=== PATIENT | male | born 1980 | race Caucasian/White ===

== ENCOUNTER 2017-06-15 09:56 | Emergency (ER) | payer BC ==
[~2017-06-15] VITALS: Ht 177.8 cm; Wt 78.5 kg
[~2017-06-15 09:56] MED LIST: HYDACE5 PO; NAPR550 PO
[2017-06-15] MEDS ORDERED: CEPH500 PO (10:25)
== END 2017-06-15 10:53 | disposition home or self-care (01) ==
LOC: ER 09:56
DX: L02.415 Cutaneous abscess of right lower limb (principal); F17.210 Nicotine dependence, cigarettes, uncomplicated
CPT/HCPCS: 99282

== ENCOUNTER 2017-06-20 14:40 | Emergency (ER) | payer BC ==
[~2017-06-20] VITALS: Ht 175.3 cm; Wt 77.1 kg
[~2017-06-20 14:40] MED LIST changes: +CEPH500 PO
[2017-06-20] MEDS ORDERED: Bactrim Ds Tab1 EACH PO (15:53)
== END 2017-06-20 16:01 | disposition home or self-care (01) ==
LOC: ER 14:40
DX: L02.415 Cutaneous abscess of right lower limb (principal); Z79.899 Other long term (current) drug therapy; Z79.2 Long term (current) use of antibiotics; F17.210 Nicotine dependence, cigarettes, uncomplicated
CPT/HCPCS: 99282

== ENCOUNTER 2019-03-22 11:25 | Emergency (ER) | payer OTHER ==
[~2019-03-22] VITALS: Ht 175.3 cm; Wt 72.6 kg
[~2019-03-22 11:25] MED LIST changes: +Bactrim Ds Tab1 EACH PO
[2019-03-22] MEDS ORDERED: PRED20 PO (12:30)
== END 2019-03-22 12:50 | disposition home or self-care (01) ==
LOC: ER 11:25
DX: M54.31 Sciatica, right side (principal); F17.210 Nicotine dependence, cigarettes, uncomplicated
CPT/HCPCS: 99282

== ENCOUNTER → 2019-04-10 | Outpatient (CLI) | payer OTHER ==
[~2019-04-10] MED LIST changes: +CLON.5; +GABA800; +PRED20 PO; +TRAM50
== END | disposition home or self-care (01) ==
LOC: LAB EV 12:56 → LAB SHORT 12:56
DX: L72.3 Sebaceous cyst (principal)
CPT/HCPCS: 87070; 87075; 87077; 87147; 87186; 87205

== ENCOUNTER 2019-04-15 13:11 | Emergency (ER) | payer OTHER ==
[~2019-04-15] VITALS: Ht 175.3 cm; Wt 70.8 kg
[~2019-04-15 13:11] MED LIST changes: -CLON.5; -GABA800; -TRAM50
[2019-04-15 13:47] LABS: BASOPHILS ABSOLUTE AUTO 0.03 K/mm3 (0.00-0.23); BASOPHILS PERCENT AUTO 0 % (0-2); EOSINOPHILS ABSOLUTE AUTO 0.17 K/mm3 (0.00-0.68); EOSINOPHILS PERCENT AUTO 2 % (0-6); Hematocrit 32.7 % (37.0-53.0); Hemoglobin 9.9 g/dL (13.5-17.5); IMMATURE GRAN ABSOLUTE AUTO 0.05 K/mm3 (0.00-0.10); IMMATURE GRAN PERCENT AUTO 1 % (0-1); LYMPHOCYTES ABSOLUTE AUTO 1.51 K/mm3 (0.84-5.20); LYMPHOCYTES PERCENT AUTO 15 % (21-46); MONOCYTES ABSOLUTE AUTO 0.52 K/mm3 (0.16-1.47); MONOCYTES PERCENT AUTO 5 % (4-13); Mean Corpuscular HGB 24.8 pg (26.0-34.0); Mean Corpuscular HGB Conc 30.3 g/dL (31.5-36.5); Mean Corpuscular Volume 82 fL (80-100); Mean Platelet Volume 9.4 fL (9.1-12.4); NEUTROPHILS ABSOLUTE AUTO 8.08 K/mm3 (1.96-9.15); NEUTROPHILS PERCENT AUTO 78 % (41-73); Platelet Count 430 K/mm3 (150-400); RDW Coefficient Variation 16.3 % (11.7-14.2); Red Blood Cell Count 3.99 M/mm3 (4.30-5.90); White Blood Cell Count 10.36 K/mm3 (4.00-11.30)
[2019-04-15 14:08] LABS: Alanine Aminotransfer (ALT/SGP 39 U/L (12-78); Albumin, Blood 3.5 g/dL (3.4-5.0); Alk Phos 121 U/L (50-136); Anion Gap 6 mmol/L (6-16); Aspartate Aminotrans (AST/SGOT 23 U/L (12-37); Bilirubin, Total 0.1 mg/dL (0.1-1.0); Blood Urea Nitrogen 17 mg/dL (8-24); Bun/Creatinine Ratio 18.8 (12.0-20.0); CO2, Blood 30 mmol/L (21-32); Calcium, Blood 11.1 mg/dL (8.5-10.1); Chloride, Blood 102 mmol/L (98-108); Creatinine, Blood 0.91 mg/dL (0.60-1.20); Globulin, Blood 3.4 g/dL (2.2-4.0); Glomerular Filtration Rate >60 (60-); Glucose, Blood 118 mg/dL (70-99); Potassium, Blood 3.3 mmol/L (3.5-5.5); Sodium, Blood 138 mmol/L (136-145); Total Protein, Blood 6.9 g/dL (6.4-8.2); Troponin I <0.015 ng/mL (0.000-0.040)
== END 2019-04-15 17:45 | disposition home or self-care (01) ==
LOC: ER 13:11
PROVIDERS: Physician Assistant
DX: K44.9 Diaphragmatic hernia without obstruction or gangrene (principal); K92.2 Gastrointestinal hemorrhage, unspecified; F17.210 Nicotine dependence, cigarettes, uncomplicated
CPT/HCPCS: 36415; 74018; 80053; 83690; 84484; 85025; 93005; 93010; 96374; 96375; 99284-25; C9113; J3010

== ENCOUNTER 2019-04-21 06:45 | Day surgery (SDC) | payer OTHER ==
[~2019-04-21] VITALS: Ht 175.3 cm; Wt 69.6 kg
[2019-04-21] MEDS ORDERED: CLON.5 (07:15)
[2019-04-21] MEDS ORDERED: TRAM50 (07:16)
[2019-04-21] MEDS ORDERED: GABA800 (07:16)
== END 2019-04-21 08:52 | disposition home or self-care (01) ==
LOC: ORSCSDS 06:45
PROVIDERS: Surgery
PROC: 0DB48ZX Excision of Esophagogastric Junction, Via Natural or Artificial Opening Endoscopic, Diagnostic (ICD-10-PCS; principal; 2019-04-21 08:00)
PROC: 0DB78ZX Excision of Stomach, Pylorus, Via Natural or Artificial Opening Endoscopic, Diagnostic (ICD-10-PCS; principal; 2019-04-21 08:00)
DX: K44.9 Diaphragmatic hernia without obstruction or gangrene (principal); K25.9 Gastric ulcer, unspecified as acute or chronic, without hemorrhage or perforation; K22.70 Barrett's esophagus without dysplasia; K20.9 Esophagitis, unspecified; I10 Essential (primary) hypertension; F17.210 Nicotine dependence, cigarettes, uncomplicated; Z79.899 Other long term (current) drug therapy
CPT/HCPCS: 88305; 88312; 88341; 88342; J0330; J0461; J2250; J2405; J2704; J7120

== ENCOUNTER → 2020-02-24 | Outpatient (CLI) | payer OTHER ==
[~2020-02-24] MED LIST changes: +CLON.5; +GABA800; +TRAM50
[2020-03-04 16:08] LABS: COTININE <10.0 ng/mL (.); NICOTINE <10.0 ng/mL (.)
== END | disposition home or self-care (01) ==
LOC: LAB 11:34 → LAB SHORT 11:34
PROVIDERS: Otolaryngology
DX: F17.201 Nicotine dependence, unspecified, in remission (principal)
CPT/HCPCS: G0480

== ENCOUNTER 2020-04-07 06:06 | Day surgery (SDC) | payer OTHER ==
[~2020-04-07] VITALS: Ht 175.3 cm; Wt 71.9 kg
[~2020-04-07 06:06] MED LIST changes: +CLON.2 PO; +GABA800 PO; +OMEP20ER PO
--- NOTE | 2020-04-07 06:40 | NUR ---
04/07/[address] NOTIFIED OF HTN. NO ORDERS GIVEN AT THIS TIME.
[2020-07-26] MEDS ORDERED: OMEP20ER (18:38)
[2020-07-26] MEDS ORDERED: BP MED (18:39)
[2020-07-26] MEDS ORDERED: GABA100 PO (18:39)
== END 2020-04-07 07:50 | disposition home or self-care (01) ==
LOC: ORSCSDS 06:06
DX: E21.0 Primary hyperparathyroidism (principal); Z53.9 Procedure and treatment not carried out, unspecified reason
CPT/HCPCS: 83970; A9270; J1100; J2250; J2405; J2704; J2765; J3010; J7120

== ENCOUNTER → 2020-04-14 | Outpatient (CLI) | payer OTHER ==
[~2020-04-14] MED LIST changes: +BP MED; +CLON.1 PO; +GABA100 PO; +LISI5 PO; +OMEP20ER; +PANT40 PO; +SUCR1 PO
[2020-04-17 03:09] LABS: CHLAMYDIA TRACHOMATIS, NAA Negative (Negative)
== END ==
LOC: LAB EV 11:28 → LAB SHORT 11:28
PROVIDERS: Family Medicine
DX: N34.2 Other urethritis (principal)
CPT/HCPCS: 87491; 87591

== ENCOUNTER 2020-07-22 16:22 | Emergency (ER) | payer OTHER ==
[~2020-07-22] VITALS: Ht 167.6 cm; Wt 72.6 kg
[~2020-07-22 16:22] MED LIST changes: -BP MED; -CLON.1 PO; -GABA100 PO; -LISI5 PO; -OMEP20ER; -PANT40 PO; -SUCR1 PO
[2020-07-22 16:57] LABS: BASOPHILS ABSOLUTE AUTO 0.07 K/mm3 (0.00-0.23); BASOPHILS PERCENT AUTO 1 % (0-2); EOSINOPHILS ABSOLUTE AUTO 0.41 K/mm3 (0.00-0.68); EOSINOPHILS PERCENT AUTO 6 % (0-6); Hematocrit 42.9 % (37.0-53.0); Hemoglobin 13.9 g/dL (13.5-17.5); IMMATURE GRAN ABSOLUTE AUTO 0.02 K/mm3 (0.00-0.10); IMMATURE GRAN PERCENT AUTO 0 % (0-1); LYMPHOCYTES ABSOLUTE AUTO 1.87 K/mm3 (0.84-5.20); LYMPHOCYTES PERCENT AUTO 27 % (21-46); MONOCYTES ABSOLUTE AUTO 0.67 K/mm3 (0.16-1.47); MONOCYTES PERCENT AUTO 10 % (4-13); Mean Corpuscular HGB 28.1 pg (26.0-34.0); Mean Corpuscular HGB Conc 32.4 g/dL (31.5-36.5); Mean Corpuscular Volume 87 fL (80-100); Mean Platelet Volume 9.8 fL (9.1-12.4); NEUTROPHILS ABSOLUTE AUTO 4.02 K/mm3 (1.96-9.15); NEUTROPHILS PERCENT AUTO 57 % (41-73); Platelet Count 312 K/mm3 (150-400); RDW Coefficient Variation 13.6 % (11.7-14.2); Red Blood Cell Count 4.95 M/mm3 (4.30-5.90); White Blood Cell Count 7.06 K/mm3 (4.00-11.30)
[2020-07-22] MEDS ORDERED: PANT40 PO (17:04)
[2020-07-22] MEDS ORDERED: SUCR1 PO (17:04)
[2020-07-22 17:11] LABS: Alanine Aminotransfer (ALT/SGP 43 U/L (12-78); Albumin, Blood 3.7 g/dL (3.4-5.0); Albumin/Globulin Ratio 1.1 (0.8-1.8); Alk Phos 128 U/L (50-136); Anion Gap 3 mmol/L (6-16); Aspartate Aminotrans (AST/SGOT 27 U/L (12-37); Bilirubin, Total 0.2 mg/dL (0.1-1.0); Blood Urea Nitrogen 15 mg/dL (8-24); Bun/Creatinine Ratio 13.4 (12.0-20.0); CO2, Blood 32 mmol/L (21-32); Calcium, Blood 11.6 mg/dL (8.5-10.1); Chloride, Blood 104 mmol/L (98-108); Creatinine, Blood 1.12 mg/dL (0.60-1.20); Globulin, Blood 3.4 g/dL (2.2-4.0); Glomerular Filtration Rate >60 (60-); Glucose, Blood 97 mg/dL (70-99); Potassium, Blood 3.8 mmol/L (3.5-5.5); Sodium, Blood 139 mmol/L (136-145); Total Protein, Blood 7.1 g/dL (6.4-8.2); Troponin I <0.015 ng/mL (0.000-0.040)
[2020-07-22] MEDS ORDERED: CLON.1 PO (18:04)
[2020-07-26] MEDS ORDERED: OMEP20ER (18:38)
[2020-07-26] MEDS ORDERED: BP MED (18:39)
[2020-07-26] MEDS ORDERED: GABA100 (18:39)
== END 2020-07-22 18:34 | disposition home or self-care (01) ==
LOC: ER 16:22
PROVIDERS: Emergency Medicine
DX: K21.00 Gastro-esophageal reflux disease with esophagitis, without bleeding (principal); I10 Essential (primary) hypertension; F17.200 Nicotine dependence, unspecified, uncomplicated
CPT/HCPCS: 71045; 80053; 84484; 85025; 93005; 93010; 96374; 99285-25; A9270; C9113

== ENCOUNTER 2020-08-11 18:39 | Emergency (ER) | payer OTHER ==
[~2020-08-11] VITALS: Ht 175.3 cm; Wt 77.1 kg
[~2020-08-11 18:39] MED LIST changes: +BP MED; +CLON.1 PO; +GABA100 PO; +OMEP20ER; +PANT40 PO; +SUCR1 PO
[2020-08-11] MEDS ORDERED: SUCR1 PO (18:50)
[2020-08-11] MEDS ORDERED: LISI5 PO (18:51)
[2020-08-11 19:09] LABS: BASOPHILS ABSOLUTE AUTO 0.07 K/mm3 (0.00-0.23); BASOPHILS PERCENT AUTO 1 % (0-2); EOSINOPHILS ABSOLUTE AUTO 0.32 K/mm3 (0.00-0.68); EOSINOPHILS PERCENT AUTO 3 % (0-6); Hematocrit 39.1 % (37.0-53.0); Hemoglobin 12.3 g/dL (13.5-17.5); IMMATURE GRAN ABSOLUTE AUTO 0.04 K/mm3 (0.00-0.10); IMMATURE GRAN PERCENT AUTO 0 % (0-1); LYMPHOCYTES ABSOLUTE AUTO 2.02 K/mm3 (0.84-5.20); LYMPHOCYTES PERCENT AUTO 20 % (21-46); MONOCYTES ABSOLUTE AUTO 0.75 K/mm3 (0.16-1.47); MONOCYTES PERCENT AUTO 7 % (4-13); Mean Corpuscular HGB 28.3 pg (26.0-34.0); Mean Corpuscular HGB Conc 31.5 g/dL (31.5-36.5); Mean Corpuscular Volume 90 fL (80-100); Mean Platelet Volume 10.2 fL (9.1-12.4); NEUTROPHILS ABSOLUTE AUTO 7.04 K/mm3 (1.96-9.15); NEUTROPHILS PERCENT AUTO 69 % (41-73); Platelet Count 306 K/mm3 (150-400); RDW Coefficient Variation 13.6 % (11.7-14.2); RDW Standard Deviation 45.2 fL (35.1-46.3); Red Blood Cell Count 4.34 M/mm3 (4.30-5.90); White Blood Cell Count 10.24 K/mm3 (4.00-11.30)
[2020-08-11 19:23] LABS: Albumin/Globulin Ratio 1.1 (0.8-1.8); Bilirubin, Total 0.2 mg/dL (0.1-1.0); Bun/Creatinine Ratio 27.8 (12.0-20.0); Calcium, Blood 12.3 mg/dL (8.5-10.1); Creatinine, Blood 1.58 mg/dL (0.60-1.20); Globulin, Blood 3.5 g/dL (2.2-4.0); Potassium, Blood 4.6 mmol/L (3.5-5.5); Total Protein, Blood 7.5 g/dL (6.4-8.2)
== END 2020-08-11 19:33 | disposition left against medical advice (07) ==
LOC: ER 18:39
PROVIDERS: Emergency Medicine
DX: E86.0 Dehydration (principal); R10.9 Unspecified abdominal pain; F17.200 Nicotine dependence, unspecified, uncomplicated; Z53.20 Procedure and treatment not carried out because of patient's decision for unspecified reasons
CPT/HCPCS: 80053; 83690; 85025; 99284

== ENCOUNTER 2020-11-10 09:44 | Day surgery (SDC) | payer OTHER ==
[~2020-11-10] VITALS: Ht 175.3 cm; Wt 65.0 kg
[~2020-11-10 09:44] MED LIST changes: +LISI5 PO
--- NOTE | 2020-11-10 10:56 | NUR ---
11/10/20 [id number] Latha Taylor PT NOTIFIED WILL BE DELAYED ABOUT AN HOUR DUE TO PRIOR PROCEEDURE.
--- NOTE | 2020-11-10 14:32 | NUR ---
11/10/20 1432 Cj Archuleta RIGHT SUPERIOR PARATHYROID REMOVED AT 1414 AND INTRAOPERATIVE PTH DRAWN AT 1427. SPENCIMEN SENT IMMEDIATELY TO LAB.
--- NOTE | 2020-11-10 18:03 | NUR ---
11/10/20 1803 Yara Sosa TORADOL 30MG GIVEN VIA IM IN RT DELTOID.
== END 2020-11-10 18:20 | disposition home or self-care (01) ==
LOC: ORSCSDS 09:44
PROVIDERS: Otolaryngology
PROC: 0GBJ0ZZ Excision of Thyroid Gland Isthmus, Open Approach (ICD-10-PCS; principal; 2020-11-10 11:00)
PROC: 0GTK0ZZ Resection of Thyroid Gland, Open Approach (ICD-10-PCS; principal; 2020-11-10 11:00)
DX: E21.0 Primary hyperparathyroidism (principal); K21.9 Gastro-esophageal reflux disease without esophagitis; F41.9 Anxiety disorder, unspecified; I10 Essential (primary) hypertension; Z79.899 Other long term (current) drug therapy
CPT/HCPCS: 83970; 88305; 88307; 88331; A9270; J0330; J0690; J1100; J1885; J2250; J2370; J2405; J2704; J3010; J7120

== ENCOUNTER 2021-06-21 19:05 | Emergency (ER) | payer OTHER ==
[~2021-06-21] VITALS: Ht 175.3 cm; Wt 77.1 kg
[2021-06-21] MEDS ORDERED: IBUP600 PO (20:18)
[2021-06-21] MEDS ORDERED: ERYT1OIN LEFTEYE (20:18)
== END 2021-06-21 20:30 | disposition home or self-care (01) ==
LOC: ER 19:05
DX: S05.02XA Injury of conjunctiva and corneal abrasion without foreign body, left eye, initial encounter (principal); Z79.899 Other long term (current) drug therapy; X58.XXXA Exposure to other specified factors, initial encounter
CPT/HCPCS: 99283; A9270

== ENCOUNTER 2021-10-03 15:40 | Emergency (ER) | payer OTHER ==
[~2021-10-03] VITALS: Ht 175.3 cm; Wt 68.0 kg
[~2021-10-03 15:40] MED LIST changes: +ERYT1OIN LEFTEYE; +IBUP600 PO
[2021-10-03] MEDS ORDERED: Naprosyn500 MG PO (16:34)
== END 2021-10-03 16:48 | disposition home or self-care (01) ==
LOC: ER 15:40
DX: M54.32 Sciatica, left side (principal); Z79.899 Other long term (current) drug therapy; F17.200 Nicotine dependence, unspecified, uncomplicated
CPT/HCPCS: J1885

== ENCOUNTER 2021-10-06 13:30 | Emergency (ER) | payer OTHER ==
[~2021-10-06] VITALS: Ht 175.3 cm; Wt 70.3 kg
[~2021-10-06 13:30] MED LIST changes: +Naprosyn500 MG PO
[2021-10-06 14:44] LABS: BASOPHILS ABSOLUTE AUTO 0.03 K/mm3 (0.00-0.23); BASOPHILS PERCENT AUTO 0 % (0-2); EOSINOPHILS ABSOLUTE AUTO 0.03 K/mm3 (0.00-0.68); EOSINOPHILS PERCENT AUTO 0 % (0-6); Hematocrit 46.7 % (37.0-53.0); Hemoglobin 15.7 g/dL (13.5-17.5); IMMATURE GRAN ABSOLUTE AUTO 0.03 K/mm3 (0.00-0.10); IMMATURE GRAN PERCENT AUTO 0 % (0-1); LYMPHOCYTES ABSOLUTE AUTO 1.74 K/mm3 (0.84-5.20); LYMPHOCYTES PERCENT AUTO 21 % (21-46); MONOCYTES ABSOLUTE AUTO 0.65 K/mm3 (0.16-1.47); MONOCYTES PERCENT AUTO 8 % (4-13); Mean Corpuscular HGB 30.1 pg (26.0-34.0); Mean Corpuscular HGB Conc 33.6 g/dL (31.5-36.5); Mean Corpuscular Volume 90 fL (80-100); Mean Platelet Volume 9.6 fL (9.1-12.4); NEUTROPHILS ABSOLUTE AUTO 5.84 K/mm3 (1.96-9.15); NEUTROPHILS PERCENT AUTO 70 % (41-73); Platelet Count 272 K/mm3 (150-400); RDW Coefficient Variation 11.9 % (11.7-14.2); RDW Standard Deviation 38.9 fL (35.1-46.3); Red Blood Cell Count 5.21 M/mm3 (4.30-5.90); White Blood Cell Count 8.32 K/mm3 (4.00-11.30)
[2021-10-06 14:47] LABS: Albumin, Blood 3.8 g/dL (3.4-5.0); Albumin/Globulin Ratio 1.1 (0.8-1.8); Bilirubin, Total 0.2 mg/dL (0.1-1.0); Bun/Creatinine Ratio 12.4 (12.0-20.0); Calcium, Blood 12.8 mg/dL (8.5-10.1); Creatinine, Blood 1.21 mg/dL (0.60-1.20); Globulin, Blood 3.6 g/dL (2.2-4.0); Potassium, Blood 3.6 mmol/L (3.5-5.5); Total Protein, Blood 7.4 g/dL (6.4-8.2)
[2021-10-06] MEDS ORDERED: OMEP20ER PO (17:16)
[2021-10-06] MEDS ORDERED: SUCR1 PO (17:17)
[2021-10-06] MEDS ORDERED: PROM12.5S PR (17:18)
[2021-10-06] MEDS ORDERED: ONDA4ODT MM (17:18)
== END 2021-10-06 17:42 | disposition home or self-care (01) ==
LOC: ER 13:30
PROVIDERS: Emergency Medicine
DX: R07.9 Chest pain, unspecified (principal); K44.9 Diaphragmatic hernia without obstruction or gangrene; R10.13 Epigastric pain; Z87.11 Personal history of peptic ulcer disease; Z87.891 Personal history of nicotine dependence; Z79.899 Other long term (current) drug therapy
CPT/HCPCS: 36415; 71046; 80053; 83690; 84484; 85025; 93005; 93010; A9270; C9113; J7030

== ENCOUNTER 2022-09-03 02:34 | Emergency (ER) | payer OTHER ==
[~2022-09-03] VITALS: Ht 175.3 cm; Wt 68.0 kg
[~2022-09-03 02:34] MED LIST changes: +ONDA4ODT MM; +PROM12.5S PR
[2022-09-03 03:08] VITALS: BP 179/132
== END 2022-09-03 04:00 | disposition home or self-care (01) ==
LOC: ER 02:34
DX: S20.362A Insect bite (nonvenomous) of left front wall of thorax, initial encounter (principal); W57.XXXA Bitten or stung by nonvenomous insect and other nonvenomous arthropods, initial encounter; Z79.899 Other long term (current) drug therapy; Z87.891 Personal history of nicotine dependence
CPT/HCPCS: 99282

== ENCOUNTER 2023-04-01 13:38 | Inpatient (IN) | payer OTHER ==
[~2023-04-01] VITALS: Ht 165.1 cm; Wt 68.8 kg
[2023-04-01 14:39] LABS: BASOPHILS ABSOLUTE AUTO 0.03 K/mm3 (0.00-0.23); BASOPHILS PERCENT AUTO 0 % (0-2); EOSINOPHILS PERCENT AUTO 0 % (0-6); Hematocrit 47.5 % (37.0-53.0); Hemoglobin 16.3 g/dL (13.5-17.5); IMMATURE GRAN ABSOLUTE AUTO 0.07 K/mm3 (0.00-0.10); IMMATURE GRAN PERCENT AUTO 0 % (0-1); LYMPHOCYTES ABSOLUTE AUTO 0.62 K/mm3 (0.84-5.20); LYMPHOCYTES PERCENT AUTO 4 % (21-46); MONOCYTES ABSOLUTE AUTO 0.48 K/mm3 (0.16-1.47); MONOCYTES PERCENT AUTO 3 % (4-13); Mean Corpuscular HGB 30.8 pg (26.0-34.0); Mean Corpuscular HGB Conc 34.3 g/dL (31.5-36.5); Mean Corpuscular Volume 90 fL (80-100); Mean Platelet Volume 9.2 fL (9.1-12.4); NEUTROPHILS ABSOLUTE AUTO 16.04 K/mm3 (1.96-9.15); NEUTROPHILS PERCENT AUTO 93 % (41-73); Platelet Count 375 K/mm3 (150-400); RDW Coefficient Variation 11.9 % (11.7-14.2); RDW Standard Deviation 38.7 fL (35.1-46.3); White Blood Cell Count 17.24 K/mm3 (4.00-11.30)
[2023-04-01 15:05] LABS: Albumin, Blood 4.3 g/dL (3.4-5.0); Bilirubin, Total 0.3 mg/dL (0.1-1.0); Bun/Creatinine Ratio 14.6 (12.0-20.0); Calcium, Blood 13.1 mg/dL (8.5-10.1); Creatinine, Blood 1.03 mg/dL (0.60-1.20); Globulin, Blood 4.1 g/dL (2.2-4.0); Total Protein, Blood 8.4 g/dL (6.4-8.2)
[2023-04-01 15:24] LABS: Magnesium, Blood 1.8 mg/dL (1.6-2.4); Phosphorus, Blood 2.2 mg/dL (2.5-4.9)
--- NOTE | 2023-04-01 23:03 | NUR ---
PT ARRIVED TO UNIT VIA BED TRANSPORTATION BY KERWIN GONZALEZ AND [facility] CATCHER ACCOMPANIED BY GIRLFRIEND, CHERRY. IMMEDIATELY REQUESTING TO TAKE A SHOWER DUE TO HAVING BEEN SWEATING.
[2023-04-01 23:39] VITALS: BP 174/110
[2023-04-02] VITALS (11 sets, daily range): BP systolic 141–186; BP diastolic 71–131
--- NOTE | 2023-04-02 06:00 | NUR ---
UM RN SUMMARY: A&Ox4. PLEASANT AND COOPERATIVE WITH CARE. CALLS APPROPRIATELY AND ABLE TO COMMUNICATE NEEDS EFFECTIVELY. HYPERTENSIVE MOST OF SHIFT; ABLE TO GET DBP <100 ONCE ABLE TO GET ABDOMINAL PAIN AND HEADACHE UNDER CONTROL. ADMINISTERING DILAUDID Q2H. HYDRALAZINE ADMINISTERED FOR SBP >160 AND DBP > 100. PRN ZOFRAN ADMINISTERED FOR NAUSEA. PATIENT TOOK SHOWER UPON ADMIT TO FLOOR. DIFFICULTY THERMOREGULATING SECONDARY TO THYROID ISSUES. CALCIUM 13.1 UPON ADMIT. LABS TO BE DRAWN THIS AM. CHERRY PORTILLO, AT BEDSIDE. NORMAL SINUS RHYTHM ON TELE MONITOR. REPORT TO ONCOMING RN.
--- NOTE | 2023-04-02 08:45 | NUR ---
INITIAL ASSESSMENT: Patient is alert and oriented x4. He denies pain at this time and he states, he is "feeling much better this morning than when I came in yesterday." HRR, murmur noted he is in SR in the 90s-he has been hypertensive T/O the night needing PRN blood pressure medication between scheduled doses. LS CTA, biox is mid 90s on RA, pt states he is a 1PPD smoker, his sig other states he has been cutting it back to 7-10 ciggarettes a day. BT+, pt is tolerating a full liquid diet this morning without any abdominal pain. His hospitalist team is at the bedside, talking with him about his home medications and what he takes on a daily basis. He is given his AM medications at this time. He denies other needs. Call light in reach.
[2023-04-02 09:31] LABS: BASOPHILS ABSOLUTE AUTO 0.04 K/mm3 (0.00-0.23); BASOPHILS PERCENT AUTO 0 % (0-2); EOSINOPHILS ABSOLUTE AUTO 0.01 K/mm3 (0.00-0.68); EOSINOPHILS PERCENT AUTO 0 % (0-6); Hematocrit 47.7 % (37.0-53.0); Hemoglobin 16.1 g/dL (13.5-17.5); IMMATURE GRAN ABSOLUTE AUTO 0.08 K/mm3 (0.00-0.10); IMMATURE GRAN PERCENT AUTO 1 % (0-1); LYMPHOCYTES ABSOLUTE AUTO 1.34 K/mm3 (0.84-5.20); LYMPHOCYTES PERCENT AUTO 8 % (21-46); MONOCYTES ABSOLUTE AUTO 0.86 K/mm3 (0.16-1.47); MONOCYTES PERCENT AUTO 5 % (4-13); Mean Corpuscular HGB 30.5 pg (26.0-34.0); Mean Corpuscular HGB Conc 33.8 g/dL (31.5-36.5); Mean Corpuscular Volume 90 fL (80-100); Mean Platelet Volume 9.1 fL (9.1-12.4); NEUTROPHILS ABSOLUTE AUTO 13.54 K/mm3 (1.96-9.15); NEUTROPHILS PERCENT AUTO 85 % (41-73); Platelet Count 347 K/mm3 (150-400); RDW Standard Deviation 39.6 fL (35.1-46.3); Red Blood Cell Count 5.28 M/mm3 (4.30-5.90); White Blood Cell Count 15.87 K/mm3 (4.00-11.30)
[2023-04-02 09:49] LABS: Albumin, Blood 3.8 g/dL (3.4-5.0); Bilirubin, Total 0.3 mg/dL (0.1-1.0); Bun/Creatinine Ratio 12.9 (12.0-20.0); Calcium, Blood 11.9 mg/dL (8.5-10.1); Creatinine, Blood 1.16 mg/dL (0.60-1.20); Globulin, Blood 3.8 g/dL (2.2-4.0); Magnesium, Blood 1.6 mg/dL (1.6-2.4); Phosphorus, Blood 2.2 mg/dL (2.5-4.9); Potassium, Blood 3.7 mmol/L (3.5-5.5); Total Protein, Blood 7.6 g/dL (6.4-8.2)
--- NOTE | 2023-04-02 18:59 | NUR ---
Summary: Patient is alert and oriented x4, he has been anxious T/O the shift when he is not asleep. He C/O of a ONTIVEROS, Naproxen given. HRR, he has been SR in the 80s-low 100s. LS CTA, biox is high 90s on RA. BT+. PPP. His blood pressure has been a little on the high side, it is well controlled with Lisinopril and Hydralazine PRN. Patient has been sleeping most of the shift. No acute changes this shift. Will report to oncoming RN.
--- NOTE | 2023-04-03 01:17 | NUR ---
PT REFUSED 0000 VITALS.
--- NOTE | 2023-04-03 02:09 | NUR ---
LATE NOTE. PT HAD POTASSIUM PHOSPHATE IV DUE AT 1823 LAST NIGHT. ATTEMPTED TO START INFUSION AT SAME TIME SHIFT ASSESSMENT LAST NIGHT BUT PT REFUSED. BRIEFLY EDUCATED ON INDICATION. PT REPORTED HE DID NOT WANT IT TO RUN WHILE HE WAS TRYING TO SLEEP. DOCUMENTED REFUSAL. WILL ATTEMPT ONE MORE TIME THIS MORNING. CONTINUING TO MONITOR.
[2023-04-03 03:35] VITALS: BP 132/85
--- NOTE | 2023-04-03 04:34 | NUR ---
SHIFT SUMMARY. NO ACUTE CHANGES THIS SHIFT. PT AOX4, PLEASANT. HAS ONLY SPORADICALLY BEEN COOPERATIVE WITH CARE. REFUSED 0000 VITALS, REFUSED IV POTASSIUM PHOSPHATE, REFUSED MORNING LAB DRAW. ATTEMPTED ONCE AGAIN THIS MORNING TO ADMINISTER IV POTASSIUM PHOSPHATE BUT PT AGAIN REFUSED. ALL URINE THROUGHOUT SHIFT VOIDED DIRECTLY INTO 24 HOUR COLLECTION CANISTER, 2-3 VOIDS THUS FAR. PT INDEPENDENT WITHIN ROOM, CALLS APPROPRIATELY FOR ASSISTANCE. ABLE TO MAKE NEEDS KNOWN. VITAL SIGNS HAVE BEEN STABLE. TELE ON THROUGHOUT SHIFT WITH NO EVENTS THUS FAR. PT REMAINS ON FULL LIQUID DIET, FREQUENTLY ADDRESSES HOW HE WOULD LIKE TO BE ABLE TO EAT "REAL FOOD" SOON POSSIBLE. PT DOES HOPE TO BE DISCHARGED TODAY. NO PAIN REPORTED THIS SHIFT, WHEN PROMPTED PT NOTES THAT HE FEELS PRETTY GOOD. BED LOCKED IN LOWEST POSITION. CALL LIGHT LEFT WITHIN REACH. CONTINUING TO MONITOR.
--- NOTE | 2023-04-03 07:28 | NUR ---
ASSUMED CARE: PT IS NSR IN 90S ON TELE. S.O. AT BEDSIDE. NO ACUTE NEDS OR CONCERNS AT THIS TIME.
[2023-04-03 07:42] LABS: BASOPHILS ABSOLUTE AUTO 0.07 K/mm3 (0.00-0.23); BASOPHILS PERCENT AUTO 0 % (0-2); EOSINOPHILS ABSOLUTE AUTO 0.16 K/mm3 (0.00-0.68); EOSINOPHILS PERCENT AUTO 1 % (0-6); Hematocrit 46.2 % (37.0-53.0); Hemoglobin 15.7 g/dL (13.5-17.5); IMMATURE GRAN ABSOLUTE AUTO 0.06 K/mm3 (0.00-0.10); IMMATURE GRAN PERCENT AUTO 0 % (0-1); LYMPHOCYTES ABSOLUTE AUTO 1.95 K/mm3 (0.84-5.20); LYMPHOCYTES PERCENT AUTO 12 % (21-46); MONOCYTES ABSOLUTE AUTO 1.42 K/mm3 (0.16-1.47); MONOCYTES PERCENT AUTO 9 % (4-13); Mean Corpuscular HGB 30.7 pg (26.0-34.0); Mean Corpuscular Volume 90 fL (80-100); Mean Platelet Volume 9.1 fL (9.1-12.4); NEUTROPHILS ABSOLUTE AUTO 12.39 K/mm3 (1.96-9.15); NEUTROPHILS PERCENT AUTO 77 % (41-73); Platelet Count 306 K/mm3 (150-400); RDW Standard Deviation 39.8 fL (35.1-46.3); Red Blood Cell Count 5.11 M/mm3 (4.30-5.90); White Blood Cell Count 16.05 K/mm3 (4.00-11.30)
[2023-04-03 07:44] VITALS: BP 148/104
--- NOTE | 2023-04-03 07:48 | NUR ---
DR MOREJON CAME TO SEE PT AND DISCUSSED PLANS AND RISK OF NOT TAKING POTASSIUM PHOS. PT AGREED TO KPHOS INFUSION, LABS AND DIET IS CHANGED. PT AGREEABLE TO STAY AND HOPES TO BE DISCHARGED LATER TODAY. S.O REMAINS AT BEDSIDE.
[2023-04-03 08:05] LABS: Albumin, Blood 3.5 g/dL (3.4-5.0); Bilirubin, Total 0.4 mg/dL (0.1-1.0); Bun/Creatinine Ratio 15.5 (12.0-20.0); Calcium, Blood 10.2 mg/dL (8.5-10.1); Creatinine, Blood 1.42 mg/dL (0.60-1.20); Globulin, Blood 3.4 g/dL (2.2-4.0); Potassium, Blood 3.9 mmol/L (3.5-5.5); Total Protein, Blood 6.9 g/dL (6.4-8.2)
--- NOTE | 2023-04-03 09:09 | NUR ---
PT CALLED STAFF TO BEDSIDE. STATED KPHOS WAS TOO PAINFUL THROUGH IV. OFFERED TO SLOW RATE AND PT DECLINED. STATED HE WANTED IT STOPPED. IV STOPPED PER REQUEST. S.O REMAINS AT BEDSIDE AT THIS TIME.
[2023-04-03] MEDS ORDERED: Vitamin D1000 UNI1 PO (11:24)
[2023-04-03] MEDS ORDERED: EUTHYROX125 MCG PO (11:24)
--- NOTE | 2023-04-03 11:35 | NUR ---
DISCHARGE: PT'S IV DC'D WNL. PT GIVEN DISCHARGE INSTRUCTIONS REGARDING MEDICATIONS AND FOLLOW UP APPOINTMENTS. PT GIVEN LABELS FOR 24 HOUR URINE AND INSTRUCTED TO COLLECT EVERY SPECIMEN AND IF HE ACCIDENTALLY DUMPS ANY TO LET US KNOW SO THAT ORDER CAN BE REPLACED. INSTRUCTED TO BRING SAMPLE BACK TOMORROW WHEN 24 HOURS IS COMPLETED. DENIED FURTHER QUESTIONS OR CONCERNS.
[2023-04-05 07:30] LABS: VITAMIN D,1,25-DIHYDROXY 55.1 pg/mL (19.9-79.3)
[2023-04-05 11:12] LABS: GASTRIN 17 pg/mL (0-100)
== END 2023-04-03 11:32 | disposition home or self-care (01) | DRG 645 ==
LOC: ER 13:38 → NUR 18:42 → PCU 19:30 → ERHOLD 19:30 → PCU 22:56
PROVIDERS: Family Medicine; Physician Assistant; Student in an Organized Health Care Education/Training Program; ADMIT Student in an Organized Health Care Education/Training Program
DX: E21.3 Hyperparathyroidism, unspecified (principal); R41.0 Disorientation, unspecified; K44.9 Diaphragmatic hernia without obstruction or gangrene; I10 Essential (primary) hypertension; F17.210 Nicotine dependence, cigarettes, uncomplicated; E89.0 Postprocedural hypothyroidism; E55.9 Vitamin D deficiency, unspecified; Z87.11 Personal history of peptic ulcer disease
CPT/HCPCS: 36415; 74177; 80053; 82306; 82330; 82652; 82941; 83605; 83690; 83735; 83970; 84100; 84146; 84443; 84484; 85025; 93005; 93010; 96374-59; 96375; 96376; 99285-25; A9270; J0360; J0780; J1170; J1650; J2405; J2765; J3489; J7030; J7060; J7120; Q9967

== ENCOUNTER → 2023-04-20 | Outpatient (CLI) | payer OTHER ==
[~2023-04-20] MED LIST changes: +EUTHYROX125 MCG PO; +Vitamin D1000 UNI1 PO
== END | disposition home or self-care (01) ==
LOC: LAB 15:00 → LAB SHORT 15:00
PROVIDERS: Registered Nurse
DX: E21.3 Hyperparathyroidism, unspecified (principal)
CPT/HCPCS: 82570

== ENCOUNTER 2023-12-16 04:28 | Emergency (ER) | payer OTHER ==
[~2023-12-16] VITALS: Ht 177.8 cm; Wt 53.5 kg
[2023-12-16 04:51] LABS: BASOPHILS ABSOLUTE AUTO 0.05 K/mm3 (0.00-0.23); BASOPHILS PERCENT AUTO 1 % (0-2); EOSINOPHILS ABSOLUTE AUTO 0.22 K/mm3 (0.00-0.68); EOSINOPHILS PERCENT AUTO 2 % (0-6); Hematocrit 43.4 % (37.0-53.0); Hemoglobin 14.9 g/dL (13.5-17.5); IMMATURE GRAN ABSOLUTE AUTO 0.03 K/mm3 (0.00-0.10); IMMATURE GRAN PERCENT AUTO 0 % (0-1); LYMPHOCYTES ABSOLUTE AUTO 1.31 K/mm3 (0.84-5.20); LYMPHOCYTES PERCENT AUTO 14 % (21-46); MONOCYTES ABSOLUTE AUTO 0.97 K/mm3 (0.16-1.47); MONOCYTES PERCENT AUTO 10 % (4-13); Mean Corpuscular HGB 30.7 pg (26.0-34.0); Mean Corpuscular HGB Conc 34.3 g/dL (31.5-36.5); Mean Corpuscular Volume 90 fL (80-100); Mean Platelet Volume 8.9 fL (9.1-12.4); NEUTROPHILS ABSOLUTE AUTO 7.02 K/mm3 (1.96-9.15); NEUTROPHILS PERCENT AUTO 73 % (41-73); Platelet Count 275 K/mm3 (150-400); RDW Coefficient Variation 11.5 % (11.7-14.2); RDW Standard Deviation 37.9 fL (35.1-46.3); Red Blood Cell Count 4.85 M/mm3 (4.30-5.90)
[2023-12-16 05:14] LABS: Albumin, Blood 3.6 g/dL (3.4-5.0); Bilirubin, Total 0.6 mg/dL (0.1-1.0); Bun/Creatinine Ratio 10.7 (12.0-20.0); Calcium, Blood 11.3 mg/dL (8.5-10.1); Creatinine, Blood 1.21 mg/dL (0.60-1.20); Globulin, Blood 3.6 g/dL (2.2-4.0); Potassium, Blood 3.9 mmol/L (3.5-5.5); Total Protein, Blood 7.2 g/dL (6.4-8.2)
[2023-12-16 06:00] VITALS: BP 156/114
[2023-12-16] MEDS ORDERED: Mag Hydrox/AL Hydrox/Simeth 30 ML UDC PO ONE (06:25)
== END 2023-12-16 18:45 | disposition home or self-care (01) ==
LOC: ER 04:28
PROVIDERS: Student in an Organized Health Care Education/Training Program
DX: R07.89 Other chest pain (principal); E03.9 Hypothyroidism, unspecified; F43.10 Post-traumatic stress disorder, unspecified; F17.210 Nicotine dependence, cigarettes, uncomplicated; Z79.899 Other long term (current) drug therapy; Z88.5 Allergy status to narcotic agent
CPT/HCPCS: 71045; 80053; 84484; 85025; 93005; 93010; 99285-25; A9270

== ENCOUNTER 2023-12-19 03:05 | Emergency (ER) | payer OTHER ==
[~2023-12-19] VITALS: Ht 172.7 cm; Wt 63.5 kg
[2023-12-19] MEDS ORDERED: Metoclopramide HCl 5MG / ML 2ML Vial IV ONE (03:20)
[2023-12-19] MEDS ORDERED: FentaNYL Citrate 50 MCG/ML 2 ML Injection IV PRN (03:20)
[2023-12-19] MEDS ORDERED: NS 1,000 ML IV SCH (03:20)
[2023-12-19 03:32] LABS: BASOPHILS ABSOLUTE AUTO 0.06 K/mm3 (0.00-0.23); BASOPHILS PERCENT AUTO 1 % (0-2); EOSINOPHILS ABSOLUTE AUTO 0.45 K/mm3 (0.00-0.68); EOSINOPHILS PERCENT AUTO 6 % (0-6); Hematocrit 41.1 % (37.0-53.0); Hemoglobin 13.9 g/dL (13.5-17.5); IMMATURE GRAN ABSOLUTE AUTO 0.03 K/mm3 (0.00-0.10); IMMATURE GRAN PERCENT AUTO 0 % (0-1); LYMPHOCYTES ABSOLUTE AUTO 1.64 K/mm3 (0.84-5.20); LYMPHOCYTES PERCENT AUTO 21 % (21-46); MONOCYTES ABSOLUTE AUTO 0.76 K/mm3 (0.16-1.47); MONOCYTES PERCENT AUTO 10 % (4-13); Mean Corpuscular HGB 30.3 pg (26.0-34.0); Mean Corpuscular HGB Conc 33.8 g/dL (31.5-36.5); Mean Corpuscular Volume 90 fL (80-100); Mean Platelet Volume 9.3 fL (9.1-12.4); NEUTROPHILS ABSOLUTE AUTO 4.79 K/mm3 (1.96-9.15); NEUTROPHILS PERCENT AUTO 62 % (41-73); Platelet Count 344 K/mm3 (150-400); RDW Coefficient Variation 11.8 % (11.7-14.2); RDW Standard Deviation 38.5 fL (35.1-46.3); Red Blood Cell Count 4.59 M/mm3 (4.30-5.90); White Blood Cell Count 7.73 K/mm3 (4.00-11.30)
[2023-12-19] MEDS ORDERED: HYDROmorphone HCl/Pf 1MG SYR IV ONE (03:50)
[2023-12-19 04:04] LABS: Albumin, Blood 3.6 g/dL (3.4-5.0); Albumin/Globulin Ratio 0.9 (0.8-1.8); Bilirubin, Total 0.4 mg/dL (0.1-1.0); Bun/Creatinine Ratio 17.2 (12.0-20.0); Calcium, Blood 13.6 mg/dL (8.5-10.1); Creatinine, Blood 1.22 mg/dL (0.60-1.20); Globulin, Blood 3.8 g/dL (2.2-4.0); Potassium, Blood 4.5 mmol/L (3.5-5.5); Total Protein, Blood 7.4 g/dL (6.4-8.2)
[2023-12-19] MEDS ORDERED: LORazepam 2 MG/ML 1ML Injection IV PRN (04:35)
[2023-12-19 06:30] VITALS: BP 177/146
[2023-12-19] MEDS ORDERED: Droperidol 5 mg/2 ml Vial IV PRN (06:40)
[2023-12-19] MEDS ORDERED: Lactated Ringer's 1,000 ML IV SCH (06:40)
[2023-12-19 07:10] LABS: PCO2 Venous 22 mmHg (38-42); pH Blood Venous 7.21 (7.34-7.37)
[2023-12-19 07:11] LABS: Base Excess Venous -19.1 mmol/L; Bicarbonate Venous 10.6 mmol/L (24.0-30.0)
== END 2023-12-19 08:26 | disposition left against medical advice (07) ==
LOC: ER 03:05
PROVIDERS: Emergency Medicine
DX: K59.00 Constipation, unspecified (principal); R14.0 Abdominal distension (gaseous); E03.9 Hypothyroidism, unspecified; F43.10 Post-traumatic stress disorder, unspecified; F17.210 Nicotine dependence, cigarettes, uncomplicated; Z48.815 Encounter for surgical aftercare following surgery on the digestive system; Z79.899 Other long term (current) drug therapy; Z88.6 Allergy status to analgesic agent
CPT/HCPCS: 74018; 74177; 80053; 82330; 82803; 83605; 83690; 83735; 85025; 93005; 93010; 96361; 96374-59; 96375; 99284-25; J1170; J2060; J2765; J3010; J7030; J7120; Q9967

== ENCOUNTER 2023-12-22 15:02 | Emergency (ER) | payer OTHER ==
[~2023-12-22] VITALS: Ht 180.3 cm; Wt 66.2 kg
[2023-12-22 17:40] LABS: BASOPHILS ABSOLUTE AUTO 0.05 K/mm3 (0.00-0.23); BASOPHILS PERCENT AUTO 1 % (0-2); EOSINOPHILS ABSOLUTE AUTO 0.48 K/mm3 (0.00-0.68); EOSINOPHILS PERCENT AUTO 6 % (0-6); Hematocrit 37.6 % (37.0-53.0); Hemoglobin 12.7 g/dL (13.5-17.5); IMMATURE GRAN ABSOLUTE AUTO 0.02 K/mm3 (0.00-0.10); IMMATURE GRAN PERCENT AUTO 0 % (0-1); LYMPHOCYTES PERCENT AUTO 18 % (21-46); MONOCYTES ABSOLUTE AUTO 0.62 K/mm3 (0.16-1.47); MONOCYTES PERCENT AUTO 7 % (4-13); Mean Corpuscular HGB 30.6 pg (26.0-34.0); Mean Corpuscular HGB Conc 33.8 g/dL (31.5-36.5); Mean Corpuscular Volume 91 fL (80-100); Mean Platelet Volume 9.6 fL (9.1-12.4); NEUTROPHILS PERCENT AUTO 68 % (41-73); Platelet Count 378 K/mm3 (150-400); RDW Coefficient Variation 11.9 % (11.7-14.2); RDW Standard Deviation 39.6 fL (35.1-46.3); Red Blood Cell Count 4.15 M/mm3 (4.30-5.90); White Blood Cell Count 8.37 K/mm3 (4.00-11.30)
[2023-12-22 17:58] LABS: Albumin, Blood 3.4 g/dL (3.4-5.0); Albumin/Globulin Ratio 1.1 (0.8-1.8); Bilirubin, Total 0.3 mg/dL (0.1-1.0); Bun/Creatinine Ratio 10.3 (12.0-20.0); Calcium, Blood 10.5 mg/dL (8.5-10.1); Creatinine, Blood 1.26 mg/dL (0.60-1.20); Globulin, Blood 3.1 g/dL (2.2-4.0); Total Protein, Blood 6.5 g/dL (6.4-8.2)
[2023-12-22] MEDS ORDERED: Ondansetron HCl 2 MG / ML 2ML Vial IV ONE (19:00)
[2023-12-22] MEDS ORDERED: Morphine Sulfate 4 MG/1 ML Injection IV ONE (19:00)
[2023-12-22 20:01] VITALS: BP 157/111
[2023-12-22] MEDS ORDERED: SENNA LAXATIVE8.6 MG PO (21:16)
[2023-12-22] MEDS ORDERED: ADULT GLYCERIN1 EACH PR (21:16)
[2023-12-22] MEDS ORDERED: DOCU100 PO (21:16)
== END 2023-12-22 21:26 | disposition home or self-care (01) ==
LOC: ER 15:02
PROVIDERS: Student in an Organized Health Care Education/Training Program
DX: K91.89 Other postprocedural complications and disorders of digestive system (principal); K56.7 Ileus, unspecified; Z88.6 Allergy status to analgesic agent; Z79.899 Other long term (current) drug therapy; F17.210 Nicotine dependence, cigarettes, uncomplicated
CPT/HCPCS: 74018; 80053; 83690; 85025; 96374; 96375; 99284-25; J2270; J2405

== ENCOUNTER 2024-03-09 08:09 | Emergency (ER) | payer OTHER ==
[~2024-03-09] VITALS: Ht 175.3 cm; Wt 66.0 kg
[~2024-03-09 08:09] MED LIST changes: +ADULT GLYCERIN1 EACH PR; +DOCU100 PO; +SENNA LAXATIVE8.6 MG PO
[2024-03-09] MEDS ORDERED: Norco 5-325 Ta1 EACH PO (08:44)
[2024-03-09] MEDS ORDERED: ATEN50 PO (08:44)
[2024-03-09] MEDS ORDERED: LEVSOD137 (08:45)
[2024-03-09] MEDS ORDERED: Ibuprofen 600 MG Tab PO ONE (09:15)
[2024-03-09 11:00] VITALS: BP 159/105
== END 2024-03-09 11:57 | disposition home or self-care (01) ==
LOC: ER 08:09
DX: J10.1 Influenza due to other identified influenza virus with other respiratory manifestations (principal); F17.210 Nicotine dependence, cigarettes, uncomplicated; Z88.5 Allergy status to narcotic agent
CPT/HCPCS: 99284; A9270

== ENCOUNTER 2024-11-10 14:02 | Emergency (ER) | payer OTHER ==
[~2024-11-10] VITALS: Ht 175.3 cm; Wt 68.0 kg
[~2024-11-10 14:02] MED LIST changes: +ATEN50 PO; +LEVSOD137; +Norco 5-325 Ta1 EACH PO
[2024-11-10] MEDS ORDERED: Ondansetron HCl 2 MG / ML 2ML Vial IV ONE (14:50)
[2024-11-10] MEDS ORDERED: FentaNYL Citrate 50 MCG/ML 2 ML Injection IV ONE (14:50)
[2024-11-10 15:56] LABS: BASOPHILS ABSOLUTE AUTO 0.03 K/mm3 (0.00-0.23); BASOPHILS PERCENT AUTO 0 % (0-2); EOSINOPHILS ABSOLUTE AUTO 0.03 K/mm3 (0.00-0.68); EOSINOPHILS PERCENT AUTO 0 % (0-6); Hematocrit 44.1 % (37.0-53.0); Hemoglobin 14.8 g/dL (13.5-17.5); IMMATURE GRAN ABSOLUTE AUTO 0.03 K/mm3 (0.00-0.10); IMMATURE GRAN PERCENT AUTO 0 % (0-1); LYMPHOCYTES ABSOLUTE AUTO 1.04 K/mm3 (0.84-5.20); LYMPHOCYTES PERCENT AUTO 14 % (21-46); MONOCYTES ABSOLUTE AUTO 0.42 K/mm3 (0.16-1.47); MONOCYTES PERCENT AUTO 6 % (4-13); Mean Corpuscular HGB Conc 33.6 g/dL (31.5-36.5); Mean Corpuscular Volume 90 fL (80-100); NEUTROPHILS ABSOLUTE AUTO 5.89 K/mm3 (1.96-9.15); NEUTROPHILS PERCENT AUTO 79 % (41-73); NRBC ABSOLUTE 0.00 K/mm3 (0.00-0.02); NRBC Auto 0.0 /100 WBC (0.0-0.2); Platelet Count 271 K/mm3 (150-400); RDW Coefficient Variation 11.9 % (11.7-14.2); RDW Standard Deviation 39.5 fL (35.1-46.3)
[2024-11-10 16:06] LABS: Alanine Aminotransfer (ALT/SGP 28.0 U/L (12-78); Albumin, Blood 4.0 g/dL (3.4-5.0); Albumin/Globulin Ratio 1.1 (0.8-1.8); Anion Gap 3.0 mmol/L (3-11); Aspartate Aminotrans (AST/SGOT 27.0 U/L (12-37); Bilirubin, Total 0.4 mg/dL (0.1-1.0); Blood Urea Nitrogen 14.0 mg/dL (8-24); CO2, Blood 26.0 mmol/L (21-32); Calcium, Blood 11.6 mg/dL (8.5-10.1); Chloride, Blood 105.0 mmol/L (98-108); Creatinine, Blood 1.02 mg/dL (0.60-1.20); Globulin, Blood 3.5 g/dL (2.2-4.0); Glucose, Blood 117.0 mg/dL (70-99); Potassium, Blood 3.9 mmol/L (3.5-5.5); Sodium, Blood 130.0 mmol/L (136-145); Total Protein, Blood 7.5 g/dL (6.4-8.2)
[2024-11-10] MEDS ORDERED: Lidocaine 2% Viscous Soln 15 ML UDC PO ONE (17:15)
[2024-11-10] MEDS ORDERED: Atropine/Scopalam/Hyoscam/PB 5 ML UDC PO ONE (17:15)
[2024-11-10] MEDS ORDERED: Metoclopramide HCl 5MG / ML 2ML Vial IV ONE (17:15)
[2024-11-10 19:04] VITALS: BP 216/146
[2024-11-10] MEDS ORDERED: RX Prepack 2 Tabs Ondansetron ODT 4MG UD ONE (19:10)
[2024-11-10] MEDS ORDERED: ATEN50 PO (19:15)
[2024-11-10] MEDS ORDERED: LISI10 PO (19:15)
[2024-11-10] MEDS ORDERED: EUTHYROX137 MCG PO (19:15)
[2024-11-10] MEDS ORDERED: PROM25 PO (19:15)
== END 2024-11-10 19:40 | disposition home or self-care (01) ==
LOC: ER 14:02
PROVIDERS: Student in an Organized Health Care Education/Training Program
DX: R10.9 Unspecified abdominal pain (principal); E03.9 Hypothyroidism, unspecified; F17.210 Nicotine dependence, cigarettes, uncomplicated; Z88.5 Allergy status to narcotic agent; Z79.899 Other long term (current) drug therapy; Z79.890 Hormone replacement therapy
CPT/HCPCS: 74176; 80053; 83690; 85025; A9270; J2405; J2765; J3010; J7120